=== PATIENT | female | born 1970 | race Caucasian/White ===

== ENCOUNTER 2019-03-13 11:52 | Emergency (ER) | payer SELFPAY ==
[~2019-03-13] VITALS: Ht 170.2 cm; Wt 98.0 kg
[2019-03-13 12:18] VITALS: Ht 170.2 cm; Wt 98.0 kg
[2019-03-13 12:49] LABS: BASOPHIL % 0.6 % (0-2); PLATELET COUNT 319 x10^3mcL (130-400); RED CELL DISTRIBUTION WIDTH 13.3 % (11.5-14.5)
[2019-03-13 15:18] VITALS: BP 149/86
== END 2019-03-13 15:18 | disposition home or self-care (01) ==
LOC: ED 11:52
PROVIDERS: Emergency Medicine
DX: R04.0 Epistaxis (principal)
CPT/HCPCS: 36415

== ENCOUNTER 2019-03-19 11:10 | Emergency (ER) | payer SELFPAY ==
[~2019-03-19] VITALS: Ht 167.6 cm; Wt 118.8 kg
[2019-03-19 11:23] VITALS: BP 162/94; Ht 167.6 cm; Wt 118.8 kg
== END 2019-03-19 13:34 | disposition left against medical advice (07) ==
LOC: ED 11:10
DX: Z53.21 Procedure and treatment not carried out due to patient leaving prior to being seen by health care provider (principal)